=== PATIENT | male | born 1995 | race Caucasian/White ===

== ENCOUNTER → 2016-09-14 | Outpatient (CLI) | payer OTHER ==
[~2016-09-14] MED LIST: BUSP5TA PO; ESCI10TA2 PO; LEXA1TAB2 PO; MOTR200T40 PO; NICO21PAT TD; TRAZ25TA PO; TRAZ50TA4 PO
--- NOTE | 2016-09-18 20:07 | SLEEPCENT ---
DATE OF PROCEDURE: 09/14/2015 REFERRING PHYSICIAN: [place] Child Nocturnal polysomnography was performed for evaluation of sleep apnea syndrome symptoms in this patient with complaints of excessive somnolence, impaired cognition, mood disorder and observed apneas with nonrestorative sleep. 7 hours and 18 minutes of data were reviewed. There were 243 minutes of sleep identified. Sleep latency was quite prolonged at 147 minutes. Rapid eye movement (REM) sleep was likewise prolonged at 282 minutes. Sleep architecture was severely fragmented. Overall sleep efficiency was only 56%. There was very little REM time (1 minute). The patient's EKG showed a sinus rhythm with an average heart rate of 58 beats per minute. Some variability in heart rate was seen surrounding respiratory events. Heart rate ranged 45 to 90 beats per minute. EEG showed some coarsening in background, possibly medication effect (SSRI). No focal events were seen. There were only five respiratory events identified of 10 seconds in duration or greater for an apnea/hypopnea index of 1.2. There was, however, significant snoring noted throughout the study and respiratory related arousals when arousals from snoring were included occurred 3.5 times per hour. Limb leads were quite active particularly late in the study and limb movement arousal index was 14.3. Oxygen saturations remained at 90% plus. IMPRESSION: Periodic limb movement disorder (G47.61). Limb movement arousal index 14.3. Snoring with respiratory related arousals 3.5 times per hour. RECOMMENDATION: Interventions to reduce the frequency of arousals from limb activity would seem the most efficacious to improve the patient's sleep architecture. Interventions to optimize upper airway tone and address the snoring problem may also improve quality of sleep.
== END | disposition home or self-care (01) ==
LOC: M SLEEP 19:50
PROVIDERS: ATTEND Nurse Practitioner Adult Health
DX: G47.61 Periodic limb movement disorder (principal)